=== PATIENT | female | born 1980 | race Two or more races ===

== ENCOUNTER 2021-05-26 12:35 | Emergency (ER) | payer MEDICAID, OTHER ==
[~2021-05-26] VITALS: Ht 162.6 cm; Wt 105.7 kg
[2021-05-26 14:01] VITALS: BP 123/45
[2021-05-26] MEDS ORDERED: AMOX-277 PO (14:59)
[2021-05-26] MEDS ORDERED: ACET-1158 PO (14:59)
== END 2021-05-26 16:42 | disposition home or self-care (01) ==
LOC: ER 12:35
DX: J02.9 Acute pharyngitis, unspecified (principal); Z90.49 Acquired absence of other specified parts of digestive tract; Z88.2 Allergy status to sulfonamides; Z20.822 Contact with and (suspected) exposure to COVID-19
CPT/HCPCS: 36415